=== PATIENT | female | born 1965 | race Two or more races ===

== ENCOUNTER → 2022-10-14 | Outpatient (CLI) | payer OTHER ==
[2022-10-14 10:25] LABS: Basophils # (auto) 0.1 10 ^3/uL (0-0.2); Basophils % (auto) 1.6 % (0.0-2.0); Eosinophils # (auto) 0.2 10 ^3/uL (0-0.8); Eosinophils % (auto) 3.8 % (0.0-7.0); Hematocrit 40.6 % (36.0-46.0); Hemoglobin 13.3 g/dL (12.2-16.2); Lymphocytes # (auto) 2.3 10 ^3/uL (0.4-5.4); Lymphocytes % (auto) 36.5 % (10.0-50.0); Mean Corpuscular Hemoglobin 28.9 pg (28.0-32.0); Mean Corpuscular Hgb Conc. 32.9 g/dL (32.0-36.0); Mean Corpuscular Volume 87.9 fL (80.0-100.0); Monocytes # (auto) 0.5 10 ^3/uL (0-1.3); Monocytes % (auto) 7.9 % (0.0-12.0); Neutrophils # (auto) 3.2 10 ^3/uL (1.6-8.6); Neutrophils % (auto) 50.2 % (37.0-80.0); Nucleated Red Blood Cells % 0.1 %; Red Blood Cells 4.62 10^6/uL (4.0-5.20); Red Cell Distribution Width 12.9 % (11.8-14.3); White Blood Cell 6.3 10^3/uL (4.4-10.8)
[2022-10-14 11:22] LABS: Albumin 3.8 g/dL (3.4-5.0); Calcium 8.9 mg/dL (8.5-10.1); Potassium 3.9 mmol/L (3.5-5.1)
[2022-10-14 11:39] LABS: Bilirubin, Total 0.4 mg/dL (0.2-1.0); Total Protein 7.8 g/dL (6.4-8.2); Urine Bacteria FEW /hpf (None Seen); Urine Blood 1+ /uL (Negative); Urine Clarity HAZY (Clear); Urine Color Yellow (Yellow); Urine Mucus FEW (None Seen); Urine Protein, UAD Negative (Negative); Urine Specific Gravity 1.019 (1.001-1.035); Urine Urobilinogen Normal (Negative); Urine WBC 133 /hpf (0 - 5)
== END | disposition home or self-care (01) ==
LOC: LAB 09:52
PROVIDERS: ATTEND Internal Medicine
DX: R10.2 Pelvic and perineal pain (principal); R73.03 Prediabetes; E78.5 Hyperlipidemia, unspecified
CPT/HCPCS: 36415; 80053; 80061; 81001; 83036; 84443; 85025

== ENCOUNTER → 2023-09-18 | Outpatient (CLI) | payer OTHER ==
[2023-09-18 11:39] LABS: Urine Bacteria None Seen /hpf (None Seen)
[2023-09-18 11:55] LABS: Urine Blood 1+ /uL (Negative); Urine Clarity Turbid (Clear); Urine Color Yellow (Yellow); Urine Hyaline Cast FEW /lpf (0 - 2); Urine Mucus FEW (None Seen); Urine Protein, UAD TRACE (Negative); Urine Specific Gravity 1.024 (1.001-1.035); Urine Urobilinogen Normal (Negative); Urine WBC 2 /hpf (0 - 5)
[2023-09-18 11:59] LABS: Basophils # (auto) 0.1 10 ^3/uL (0-0.2); Basophils % (auto) 0.9 % (0.0-2.0); Eosinophils # (auto) 0.2 10 ^3/uL (0-0.8); Eosinophils % (auto) 2.8 % (0.0-7.0); Lymphocytes # (auto) 2.3 10 ^3/uL (0.4-5.4); Lymphocytes % (auto) 27.4 % (10.0-50.0); Mean Corpuscular Hgb Conc. 34.3 g/dL (32.0-36.0); Mean Corpuscular Volume 87.5 fL (80.0-100.0); Monocytes # (auto) 0.7 10 ^3/uL (0-1.3); Monocytes % (auto) 8.2 % (0.0-12.0); Neutrophils % (auto) 60.7 % (37.0-80.0); Nucleated Red Blood Cells % 0.1 %; Red Blood Cells 4.34 10^6/uL (4.0-5.20); Red Cell Distribution Width 13.1 % (11.8-14.3); White Blood Cell 8.3 10^3/uL (4.4-10.8)
[2023-09-18 12:22] LABS: Creatinine, Urine 235.73 mg/dL (30.0-125.0)
[2023-09-18 12:25] LABS: Alanine Aminotransferase 22 U/L (7-40); Albumin 4.5 g/dL (3.2-4.8); Alkaline Phosphatase 85 U/L (46-116); Anion Gap 6 (5-15); Aspartate Aminotransferase 18 U/L (13-40); BUN/Creatinine Ratio 16.2 (10.0-20.0); Blood Urea Nitrogen 12 mg/dL (9-23); Calcium 9.8 mg/dL (8.7-10.4); Carbon Dioxide 26 mmol/L (20-30); Chloride 108 mmol/L (98-107); Cholesterol 206 mg/dL (< 200); Glucose 101 mg/dL (74-106); HDL Cholesterol 63 mg/dL (40-59); LDL Cholesterol 117 mg/dL (< 100); Potassium 3.7 mmol/L (3.5-5.1); Sodium 140 mmol/L (136-145); Triglycerides 188 mg/dL (< 150)
[2023-09-18 12:26] LABS: Bilirubin, Total 0.7 mg/dL (0.2-1.0); Total Protein 7.4 g/dL (5.7-8.2)
[2023-09-18 12:28] LABS: Free T3 3.16 pg/mL (2.3-4.2)
== END | disposition home or self-care (01) ==
LOC: LAB 11:22
PROVIDERS: ATTEND Internal Medicine
DX: Z00.00 Encounter for general adult medical examination without abnormal findings (principal); E78.5 Hyperlipidemia, unspecified; N39.0 Urinary tract infection, site not specified; R73.03 Prediabetes; G47.33 Obstructive sleep apnea (adult) (pediatric); R51.9 Headache, unspecified; H53.8 Other visual disturbances
CPT/HCPCS: 36415; 80053; 80061; 81001; 82043; 82306; 82570; 82607; 83036; 84403; 84443; 84481; 85025